=== PATIENT | female | born 1980 | race American Indian/Alaskan Native ===

== ENCOUNTER 2018-07-19 11:19 | Emergency (ER) | payer MEDICARE ==
[2018-07-19 11:44] VITALS: BP 143/91
--- NOTE | 2018-07-19 11:48 | Emergency Department Report ---
Blank Doc - Documentation Documentation: 38 y o female presents with right ankle pain and left wrist pain thats worse wi th prolonged standing and walking walks with a walker no recent injuries [facility] xrays reevaluate
--- NOTE | 2018-07-19 12:40 | XRay Report ---
LEFT WRIST, 2 views: HISTORY: Pain. 2 views demonstrate the carpal bones to be well mineralized with well preserved bony mineralization and interosseous joint spaces. The carpal and adjacent articular bones have normal contours. The surrounding soft tissues are unremarkable. IMPRESSION: Normal study.
--- NOTE | 2018-07-19 12:40 | XRay Report ---
RIGHT ANKLE, 2 VIEWS History: Pain. Findings: There has been previous internal fixation of the distal tibia and fibula, correlate with history. The hardware is unremarkable. There are advanced degenerative changes of the right ankle joint. No acute fracture or bony destruction is appreciated. Impression: Internally fixated fractures of the distal tibia and fibula. Advanced degenerative changes at the ankle joint. No acute process is noted.
[2018-07-19] MEDS ORDERED: NORCO 5/325 PO ONE (13:25)
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
[2018-07-19] MEDS ORDERED: NAPROSYN PO ONE (14:25)
== END 2018-07-19 14:21 | disposition home or self-care (01) ==
LOC: ED 11:19
DX: S63.502A Unspecified sprain of left wrist, initial encounter (principal); M13.871 Other specified arthritis, right ankle and foot; Z88.6 Allergy status to analgesic agent; Z91.041 Radiographic dye allergy status; Z88.8 Allergy status to other drugs, medicaments and biological substances; Z91.048 Other nonmedicinal substance allergy status; X50.0XXA Overexertion from strenuous movement or load, initial encounter; Y93.89 Activity, other specified; Y92.89 Other specified places as the place of occurrence of the external cause; Y99.8 Other external cause status
CPT/HCPCS: 99284

== ENCOUNTER 2018-10-12 16:06 | Outpatient (CLI) | payer MEDICARE ==
--- NOTE | 2018-10-12 17:31 | XRay Report ---
PROCEDURE: XR ANKLE 3+V RT TECHNIQUE: 3 views right ankle HISTORY: PAIN IN RIGHT ANKLE AND JOINTS OF FOOT COMPARISONS: None FINDINGS: Status post plate and screw fixation medial and lateral malleoli. Hardware intact. Anatomic alignment . Fractures are healed. Loss of ankle mortise joint space. Advanced arthritic change. No acute fracture or malalignment No calcaneal spur IMPRESSION: Status post bimalleolar ORIF. Fractures healed with anatomic alignment Advanced arthritic change ankle mortise No acute abnormality. This document is electronically signed by Nolan Cavanaugh MD., Oct 12 2018 05:29:47 PM ET
--- NOTE | 2018-10-12 17:33 | XRay Report ---
PROCEDURE: XR KNEE 1-2V LT TECHNIQUE: AP lateral views left knee HISTORY: PAIN IN LEFT KNEE, WEIGHT BEARING AND STANDING COMPARISONS: None FINDINGS: Status post total knee arthroplasty. No acute fracture or malalignment. No joint effusion. No acute s oft tissue abnormality IMPRESSION: Status post total knee arthroplasty. No acute abnormality identified. . This document is electronically signed by Nolan Cavanaugh MD., Oct 12 2018 05:31:29 PM ET
== END 2018-10-12 16:07 | disposition home or self-care (01) ==
LOC: XRAY 16:06
PROVIDERS: ATTEND Orthopaedic Surgery
DX: M25.571 Pain in right ankle and joints of right foot (principal); M25.562 Pain in left knee; Z96.652 Presence of left artificial knee joint